=== PATIENT | male | born 1965 | race Hispanic/Latino ===

== ENCOUNTER 2017-11-24 15:11 | Emergency (ER) | payer BC ==
[2017-11-24 15:17] VITALS: BMI 37.5
[2017-11-24 15:22] VITALS: RESP 18; TEMP 97.6; O2SAT 99
[2017-11-24] MEDS ORDERED: HYDROmorphone 0.5 mg/0.5 ml ISec IVP STA (15:37)
[2017-11-24 15:51] LABS: BASO # 0.02 K/mm3 (0.0-2.0); BASO % 0.2 % (0.0-3.0); EOS # 0.1 (0.0-0.7); GRAN # 6.68 (1.4-6.5); GRAN % 75.2 % (50.0-68.0); HEMOGLOBIN 15.4 g/dL (14.0-18.0); LYMPH # 1.5 (1.2-3.4); LYMPH % 16.6 % (22.0-35.0); MEAN CELL VOLUME 85.9 fl (80.0-105.0); MEAN CORPUSCULAR HGB CONC 33.8 g/dl (31.0-37.0); MEAN PLATELET VOLUME 9.5 fl (7.0-11.0); MONO # 0.6 (0.1-0.6); RBC 5.31 10^6/uL (3.5-6.1); RED CELL DISTRIBUTION WIDTH 14.8 % (11.5-14.5); WHITE BLOOD COUNT 8.9 10^3/ul (4.5-11.0)
[2017-11-24 15:52] LABS: PH,URINE 6.5 (4.7-8.0); URINE BILIRUBIN NEGATIVE (NEGATIVE); URINE BLOOD MODERATE (NEGATIVE); URINE GLUCOSE (UA) 500 mg/dL (NEGATIVE); URINE LEUKOCYTE ESTERASE NEGATIVE Leu/uL (NEGATIVE); URINE PROTEIN NEGATIVE mg/dL (<30 mg/dL); URINE UROBILINOGEN 0.2 E.U./dL (<1 E.U./dL)
[2017-11-24 15:53] LABS: URINE APPEARANCE CLEAR (CLEAR); URINE COLOR YELLOW (YELLOW)
[2017-11-24 16:00] LABS: ALB/GLOB RATIO 1.5 (1.1-1.8); ALBUMIN 4.4 g/dL (3.0-4.8); ALT/SGPT 30 U/L (7-56); AST/SGOT 21 U/L (17-59); BLOOD UREA NITROGEN 17 mg/dL (7-21); CALCIUM 9.3 mg/dL (8.4-10.5); GFR AFRICAN-AMERICAN > 60; GFR NON-AFRICAN AMERICAN > 60
[2017-11-24 16:05] LABS: URINE BACTERIA TRACE (NEG); URINE EPITHELIAL CELLS 0 - 2 /hpf (0-5); URINE WBC 0 - 2 /hpf (0-6)
--- NOTE | 2017-11-24 16:05 | ED PDOC ---
Arrival/HPI - General Chief Complaint: Back Pain Time Seen by Provider: 11/24/17 16:01 Historian: Patient - History of Present Illness Narrative History of Present Illness (Text): 11/24/17 16:02 52 year old male, whose past medical history includes hypertension and diabetes , who presents to the emergency department complaining of right flank pain. Patient had a kidney stone 15 years ago and states pain to be the same. Patient is in no acute distress. Patient denies any fever, chills, chest pain, shortness of breath, nausea, vomiting, diarrhea, back pain, neck pain, headache , dizziness, or any other complaints. Time/Duration: Prior to Arrival Symptom Course: Unchanged Activities at Onset: Light Context: Home Past Medical History - Provider Review Nursing Documentation Reviewed: Yes - Infectious Disease Hx of Infectious Diseases: None - Renal Hx Kidney Stones: Yes - Endocrine/Metabolic Hx Diabetes Mellitus Type 2: Yes - Psychiatric Hx Substance Use: No - Surgical History Hx Orthopedic Surgery: Yes (r knee x 2) - Anesthesia Hx Anesthesia: Yes Hx Anesthesia Reactions: No Hx Malignant Hyperthermia: No Family/Social History - Physician Review Nursing Documentation Reviewed: Yes Family/Social History: Unknown Family HX Smoking Status: Never Smoked Hx Alcohol Use: Yes Frequency of alcohol use: Socially Hx Substance Use: No Allergies/Home Meds Allergies/Adverse Reactions: Allergies No Known Allergies Allergy (Verified 11/24/17 15:16) Home Medications: Home Meds Medication Instructions Recorded Confirmed MetFORMIN [glucoPHAGE] 1 tab PO BID 11/24/17 11/24/17 Ssshe-4-Ivxa Ethyl Esters 1 GM 2 cap PO DAILY 11/24/17 11/24/17 [Lovaza] Review of Systems - Physician Review All systems were reviewed & negative as marked: Yes - Review of Systems Constitutional: Normal Eyes: Normal ENT: Normal Respiratory: Normal. absent: SOB, Cough Cardiovascular: Normal. absent: Chest Pain Gastrointestinal: Normal. absent: Abdominal Pain, Diarrhea, Nausea, Vomiting Genitourinary Male: Normal Musculoskeletal: Normal, Back Pain (rigth flank pain). absent: Neck Pain Skin: Normal. absent: Rash Neurological: Normal. absent: Headache, Dizziness Endocrine: Normal Hemo/Lymphatic: Normal Psychiatric: Normal Physical Exam Vital Signs Reviewed: Yes Vital Signs Temp Pulse Resp BP Pulse Ox 11/24/17 15:21 97.6 F 57 L 18 161/86 H 99 Temperature: Afebrile Blood Pressure: Hypertensive Pulse: Regular Respiratory Rate: Normal Appearance: Positive for: Well-Appearing, Non-Toxic, Comfortable Pain Distress: None Mental Status: Positive for: Alert and Oriented X 3 - Systems Exam Head: Present: Atraumatic, Normocephalic Pupils: Present: PERRL Extroacular Muscles: Present: EOMI Conjunctiva: Present: Normal Mouth: Present: Moist Mucous Membranes Neck: Present: Normal Range of Motion. No: Meningeal Signs, MIDLINE TENDERNESS Respiratory/Chest: Present: Clear to Auscultation, Good Air Exchange. No: Respiratory Distress, Accessory Muscle Use Cardiovascular: Present: Regular Rate and Rhythm, Normal S1, S2. No: Murmurs Abdomen: No: Tenderness, Distention, Peritoneal Signs Back: Present: Normal Inspection. No: CVA Tenderness, Midline Tenderness, Paraspinal Tenderness Upper Extremity: Present: Normal Inspection. No: Cyanosis, Edema Lower Extremity: Present: Normal Inspection. No: Edema Neurological: Present: GCS=15, CN II-XII Intact, Speech Normal Skin: Present: Warm, Dry, Normal Color. No: Rashes Psychiatric: Present: Alert, Oriented x 3, Normal Insight, Normal Concentration Medical Decision Making ED Course and Treatment: 11/24/17 16:06 Impression: 52 year old male presents to the emergency department complaining of right flank pain. Plan: -- Dilaudis -- Toradol -- Zofran -- Urine Culture -- Urinalysis -- Reassess and disposition Progress Notes: - Lab Interpretations Lab Results: 11/24/17 15:38 11/24/17 15:38 Lab Results 11/24/17 15:38: Sodium 145, Potassium 4.3, Chloride 105, Carbon Dioxide 25, Anion Gap 19, BUN 17, Creatinine 1.1, Est GFR ( Amer) > 60, Est GFR (Non- Af Amer) > 60, Random Glucose 218 H, Calcium 9.3, Total Bilirubin 0.8, AST 21, ALT 30, Alkaline Phosphatase 53, Total Protein 7.3, Albumin 4.4, Globulin 2.9, Albumin/Globulin Ratio 1.5 11/24/17 15:38: WBC 8.9, RBC 5.31, Hgb 15.4, Hct 45.6, MCV 85.9, MCH 29.0, MCHC 33.8, RDW 14.8 H, Plt Count 144, MPV 9.5, Gran % 75.2 H, Lymph % (Auto) 16.6 L, [place] % (Auto) 7.0 H, Eos % (Auto) 1.0 L, Baso % (Auto) 0.2, Gran # 6.68 H, Lymph # (Auto) 1.5, Winn # (Auto) 0.6, Eos # (Auto) 0.1, Baso # (Auto) 0.02 11/24/17 15:38: Urine Color Yellow, Urine Appearance Clear, Urine pH 6.5, Ur Specific [place] 1.020, Urine Protein Negative, Urine Glucose (UA) 500 H, Urine Ketones Negative, Urine Blood Moderate H, Urine Nitrate Negative, Urine Bilirubin Negative, Urine Urobilinogen 0.2, Ur Leukocyte Esterase Negative, Urine RBC Pending, Urine WBC Pending - Medication Orders Current Medication Orders: Discontinued Medications Hydromorphone HCl (Dilaudid) 2 mg IVP STAT STA Stop: 11/24/17 15:38 Last Admin: 11/24/17 15:52 Dose: 2 mg MAR Pain Assessment Document 11/24/17 15:52 GMD (Rec: 11/24/17 15:52 GMD [id number]) Pain Reassessment Is this a pain reassessment? No IVP Administration Document 11/24/17 15:52 GMD (Rec: 11/24/17 15:52 GMD [id number]) Charges for Administration # of IVP Administrations 1 Ketorolac Tromethamine (Toradol) 30 mg IVP STAT STA Stop: 11/24/17 15:38 Last Admin: 11/24/17 15:50 Dose: 30 mg MAR Pain Assessment Document 11/24/17 15:50 GMD (Rec: 11/24/17 15:50 GMD [id number]) Pain Reassessment Is this a pain reassessment? No IVP Administration Document 11/24/17 15:50 GMD (Rec: 11/24/17 15:50 GMD [id number]) Charges for Administration # of IVP Administrations 1 Ondansetron HCl (Zofran Inj) 8 mg IVP STAT STA Stop: 11/24/17 15:38 Last Admin: 11/24/17 15:49 Dose: 8 mg IVP Administration Document 11/24/17 15:49 GMD (Rec: 11/24/17 15:49 GMD [id number]) Charges for Administration # of IVP Administrations 1 - Scribe Statement The provider has reviewed the documentation as recorded by the Scribe Ladan Castillo All medical record entries made by the Scribe were at my direction and personally dictated by me. I have reviewed the chart and agree that the record accurately reflects my personal performance of the history, physical exam, medical decision making, and the department course for this patient. I have also personally directed, reviewed, and agree with the discharge instructions and disposition. Disposition/Present on Arrival - Present on Arrival History of DVT/PE: No History of Uncontrolled Diabetes: No Urinary Catheter: No History of Decub. Ulcer: No History Surgical Site Infection Following: None - Disposition Referrals: Jeanine Cha MD [Primary Care Provider] - Follow up with primary
--- NOTE | 2017-11-24 19:38 | ED PDOC ---
"Physical Exam Vital Signs Temp Pulse Resp BP Pulse Ox 11/24/17 15:21 97.6 F 57 L 18 161/86 H 99 Medical Decision Making ED Course and Treatment: 11/24/17 19:36 Case endorsed to me by Dr. Lopez, pending CT Abd/Pelvis results. Pt presents complaint of rt flank pain. Patient past medical history includes kidney stones. Pt resting comfortably and in no acute distress. 11/24/17 19:42 CT Abd/Pelvis reviewed shows: Lung bases: There is minimal bibasilar atelectasis. ABDOMEN: Liver: Unremarkable. No suspicious lesions are seen. Gallbladder and bile ducts: The gallbladder is contracted but otherwise normal. Pancreas: Unremarkable. No ductal dilation. Spleen: Unremarkable. No splenomegaly. Adrenals: Unremarkable. No mass. Kidneys and ureters: There is moderate hydronephrosis hydroureter of the right collecting system secondary to a partially obstructing stone located in the right UVJ, 4 mm. The left kidney is normal. Stomach and bowel: A gastric banding procedure has been performed. No obstruction. No mucosal thickening. PELVIS: Appendix: No findings to suggest acute appendicitis. Bladder: Unremarkable. No stones. Reproductive: Unremarkable as visualized. IRENE DAVID | Preliminary Radiology Report DERMATOLOGICAL SURGEON (QA) DISCREPANCY? If there is a discrepancy between the preliminary and final interpretation, please notify [facility] via [email or web address]. If you do not have access to our QA portal, call our QA team at [phone] CONFIDENTIALITY STATEMENT This report is intended only for the use of the referring physician, and only in accordance with law, If you received this in error, call [phone] Page 2 of 2 ABDOMEN and PELVIS: Intraperitoneal space: Unremarkable. No free air. No significant fluid collection. Bones/joints: No acute fracture. No dislocation. Soft tissues: Unremarkable. Vasculature: Unremarkable. No abdominal aortic aneurysm. Lymph nodes: Unremarkable. No enlarged lymph nodes. IMPRESSION: Moderate obstruction of the right kidney secondary to a right UVJ stone which measures 4 mm. 11/24/17 20:03 Case discussed with Pt's PMD, Dr. Cha. Patient prefers d/c since he is pain free. Dr. Cha requests pt to him a call in the morning for a follow up. Case discussed with Urologist, Dr. Watkins, who requests pt call him tonight to arrange further follow up care. Pt given instructions to return to emergency department if pain becomes persistent. - Lab Interpretations Lab Results: 11/24/17 15:38 11/24/17 15:38 Lab Results 11/24/17 15:38: Sodium 145, Potassium 4.3, Chloride 105, Carbon Dioxide 25, Anion Gap 19, BUN 17, Creatinine 1.1, Est GFR ( Amer) > 60, Est GFR (Non- Af Amer) > 60, Random Glucose 218 H, Calcium 9.3, Total Bilirubin 0.8, AST 21, ALT 30, Alkaline Phosphatase 53, Total Protein 7.3, Albumin 4.4, Globulin 2.9, Albumin/Globulin Ratio 1.5 11/24/17 15:38: WBC 8.9, RBC 5.31, Hgb 15.4, Hct 45.6, MCV 85.9, MCH 29.0, MCHC 33.8, RDW 14.8 H, Plt Count 144, MPV 9.5, Gran % 75.2 H, Lymph % (Auto) 16.6 L, [place] % (Auto) 7.0 H, Eos % (Auto) 1.0 L, Baso % (Auto) 0.2, Gran # 6.68 H, Lymph # (Auto) 1.5, [place] # (Auto) 0.6, Eos # (Auto) 0.1, Baso # (Auto) 0.02 11/24/17 15:38: Urine Color Yellow, Urine Appearance Clear, Urine pH 6.5, Ur Specific [place] 1.020, Urine Protein Negative, Urine Glucose (UA) 500 H, Urine Ketones Negative, Urine Blood Moderate H, Urine Nitrate Negative, Urine Bilirubin Negative, Urine Urobilinogen 0.2, Ur Leukocyte Esterase Negative, Urine RBC 1 - 3, Urine WBC 0 - 2, Ur Epithelial Cells 0 - 2, Urine Bacteria Trace - RAD Interpretation Radiology Orders: 11/24/17 17:21 ABDOMEN & PELVIS [ABD & PELVIS W/O PO OR IV CONT] [CT] Stat - Medication Orders Current Medication Orders: Discontinued Medications Hydromorphone HCl (Dilaudid) 2 mg IVP STAT STA Stop: 11/24/17 15:38 Last Admin: 11/24/17 15:52 Dose: 2 mg MAR Pain Assessment Document 11/24/17 15:52 GMD (Rec: 11/24/17 15:52 GMD [id number]) Pain Reassessment Is this a pain reassessment? No IVP Administration Document 11/24/17 15:52 GMD (Rec: 11/24/17 15:52 GMD [id number]) Charges for Administration # of IVP Administrations 1 Ketorolac Tromethamine (Toradol) 30 mg IVP STAT STA Stop: 11/24/17 15:38 Last Admin: 11/24/17 15:50 Dose: 30 mg MAR Pain Assessment Document 11/24/17 15:50 GMD (Rec: 11/24/17 15:50 GMD [id number]) Pain Reassessment Is this a pain reassessment? No IVP Administration Document 11/24/17 15:50 GMD (Rec: 11/24/17 15:50 GMD [id number]) Charges for Administration # of IVP Administrations 1 Ondansetron HCl (Zofran Inj) 8 mg IVP STAT STA Stop: 11/24/17 15:38 Last Admin: 11/24/17 15:49 Dose: 8 mg IVP Administration Document 11/24/17 15:49 GMD (Rec: 11/24/17 15:49 GMD [id number]) Charges for Administration # of IVP Administrations 1 - Scribe Statement The provider has reviewed the documentation as recorded by the Vikyiblizabeth Castillo All medical record entries made by the Vikyiblizabeth were at my direction and personally dictated by me. I have reviewed the chart and agree that the record accurately reflects my personal performance of the history, physical exam, medical decision making, and the department course for this patient. I have also personally directed, reviewed, and agree with the discharge instructions and disposition. Disposition/Present on Arrival - Present on Arrival Any Indicators Present on Arrival: No History of DVT/PE: No History of Uncontrolled Diabetes: No Urinary Catheter: No History of Decub. Ulcer: No History Surgical Site Infection Following: None - Disposition Have Diagnosis and Disposition been Completed?: Yes Diagnosis: Renal colic Disposition: HOME/ ROUTINE Disposition Time: 19:51 Patient Plan: Discharge Patient Problems: Current Active Problems Problem Status Onset Renal colic Acute Condition: GOOD Discharge Instructions (ExitCare): Renal Colic (DC) Additional Instructions: Drink plenty of liquids/take meds as prescribed/Call Dr.Brooks sahni at 8:30 A.M./Call the urologist Dr.Shulman feliciano at /Any recurrent persistent pain not relieved return to the emergency room Prescriptions: oxyCODONE/Acetaminophen [Percocet 5/325 mg Tab] 1 ea PO Q6 PRN #16 tab PRN Reason: Pain, Moderate (4-7) Referrals: Jeanine Cha MD [Primary Care Provider] - Follow up with primary Guanaco Watkins MD [Staff Provider] - Follow up with primary Forms: Effective Measure (Lao)"
[2017-11-24 20:29] VITALS: BP 134/78; PULSE 58
--- NOTE | 2017-11-25 09:05 | CT ---
PROCEDURE: CT Abdomen and Pelvis without intravenous contrast HISTORY: Flank Pain, ? Stone COMPARISON: None. TECHNIQUE: Technique. Contrast dose: Radiation dose: Total exam DLP = mGy-cm. This CT exam was performed using one or more of the following dose reduction techniques: Automated exposure control, adjustment of the mA and/or kV according to patient size, and/or use of iterative reconstruction technique. FINDINGS: LOWER THORAX: Unremarkable. LIVER: Unremarkable. No gross lesion or ductal dilatation. GALLBLADDER AND BILE DUCTS: Unremarkable. PANCREAS: Unremarkable. No gross lesion or ductal dilatation. SPLEEN: Unremarkable. ADRENALS: Unremarkable. No mass. KIDNEYS AND URETERS: Moderate right hydronephrosis and hydroureter secondary to a 4 millimeter right UVJ calculus. VASCULATURE: Unremarkable. No aortic aneurysm. BOWEL: Unremarkable. No obstruction. No gross mural thickening. APPENDIX: Unremarkable. Normal appendix. PERITONEUM: Unremarkable. No free fluid. No free air. LYMPH NODES: Unremarkable. No enlarged lymph nodes. BLADDER: Unremarkable. REPRODUCTIVE: Unremarkable. BONES: No acute fracture. OTHER FINDINGS: Status post gastric lap band procedure. IMPRESSION: Moderate right hydronephrosis and hydroureter secondary to a 4 millimeter right UVJ calculus.
== END 2017-11-24 20:25 | disposition home or self-care (01) ==
LOC: ED 15:11
DX: N23 Unspecified renal colic (principal); I10 Essential (primary) hypertension; E11.9 Type 2 diabetes mellitus without complications
CPT/HCPCS: 74176; 80053; 81001; 85025; 87086; 96374; 96375; 99282; J1170; J1885; J2405